=== PATIENT | female | born 1960 | race Caucasian/White ===

== ENCOUNTER 2018-05-22 00:09 | Outpatient (CLI) | payer BC, SELFPAY ==
[2018-05-22 10:55] LABS: ALT 45 U/L (12-78); AST 26 U/L (15-37); Albumin 3.5 g/dL (3.4-5.0); Alkaline Phosphatase 76 U/L (46-116); Anion Gap 10.1 mmol/L (3-11); BUN 12 mg/dL (7-18); Bilirubin, Total 0.6 mg/dL (0.2-1.0); CO2 27.9 mmol/L (21.0-32.0); CREATININE 0.64 mg/dL (0.55-1.02); Calcium 9.1 mg/dL (8.5-10.1); Chloride 105 mmol/L (98-107); Glucose 96 mg/dL (70-100); Potassium 4.1 mmol/L (3.5-5.1); Sodium 143 mmol/L (136-145); TSH (W/Ref FT4) 1.81 uIU/mL (0.358-3.74); Total Protein 6.9 g/dL (6.4-8.2)
== END 2018-05-22 00:29 ==
DX: R63.8 Other symptoms and signs concerning food and fluid intake (principal); F41.9 Anxiety disorder, unspecified; Z00.00 Encounter for general adult medical examination without abnormal findings
CPT/HCPCS: 36415; 80053; 84443

== ENCOUNTER 2018-07-22 01:06 | Outpatient (CLI) | payer BC, SELFPAY ==
--- NOTE | 2018-07-22 08:00 | DI.MAMMO_ITS ---
SYMPTOMS/DIAGNOSIS: SCREENING, Z12.31 MAMMOGRAM: Mammograms were interpreted according to the usual protocol including computer analysis with CAD system, tomosynthesis and C view imaging. The breast tissue is radiodense which lowers the sensitivity of the study. There is no dominant mass. There are no suspicious calcifications and there has been no significant interval change when compared with prior images. SUMMARY: No evidence of malignancy, Category I, yearly screening mammography is recommended. Breast density Category C. MQSA ASSESSMENT OF FINDINGS: Negative. Category 1. Patient will receive a letter notifying them of these results. Bi-RADS category C. The breasts are heterogeneously dense, which may obscure small masses.
== END 2018-07-22 01:26 ==
DX: Z12.31 Encounter for screening mammogram for malignant neoplasm of breast (principal)
CPT/HCPCS: 77063; 77067

== ENCOUNTER 2019-07-18 00:55 | Outpatient (CLI) | payer BC, SELFPAY ==
--- NOTE | 2019-07-18 16:39 | DI.DEXA_ITS ---
EXAM: XR DEXA BONE DENSITY W/WO JANE INDICATION: OTHER PRIMARY OVARIAN FAILURE E28.39. COMPARISON: No exams were available for comparison TECHNIQUE: 2D digital imaging was performed. FINDINGS: The lateral spine fill shows no compression fracture deformities. Evaluation of the left hip shows a total T-score of -0.8 and a Z-score of 0.1. This is within normal limits. There is no evidence of osteoporosis. Evaluation of the lumbar spine shows a total T-score of -0.7 and a Z-score of 0.6. This is within no rmal limits. There is no evidence of osteoporosis. IMPRESSION: No evidence of osteoporosis.
== END 2019-07-18 01:15 ==
PROVIDERS: PCP General Practice; Visit Provider General Practice
DX: E28.39 Other primary ovarian failure (principal); Z13.820 Encounter for screening for osteoporosis
CPT/HCPCS: 77080

== ENCOUNTER 2019-08-02 01:17 | Outpatient (CLI) | payer BC, SELFPAY ==
--- NOTE | 2019-08-02 16:24 | DI.MAMMO_ITS ---
EXAM: MAMMO SCREENING CLINICAL HISTORY: SCREENING Z12.31 TECHNIQUE: Mammograms were interpreted according to the usual protocol including computer analysis w [employer] CAD system, tomosynthesis and C-view imaging. COMPARISON: 2009 to 2017 FINDINGS: The breasts are composed of heterogeneously dense fibroglandular densities, Breast Density category C . No suspicious masses or suspicious microcalcifications are seen. No skin thickening or abnormal axillary lymph nodes are seen. There has been no significant change from prior exams. IMPRESSION: BIRADS Category 1, negative mammogram. Yearly screening mammography is recommended. BREAST DENSITY: The mammogram demonstrates the patient's breast tissue is dense. Dense breast tissue is very common and is not abnormal but dense breast tissue can make it harder to find cancer on a ma mmogram. Also, dense breast tissue may increase their breast cancer risk. This information about the result of the mammogram report was provided to the patient to raise their awareness. Use this report when you speak with the patient about their risks for breast cancer, which includes their family hist ory. At that time, you may recommend for more screening tests (Ultrasound or MRI) as they might be us eful based on their risk. A negative radiographic report should not delay biopsy if a dominant or clinically suspicious mass is present. Up to ten percent of cancers are not identified on mammography. A negative report may reinforce clinical impression. Adenosis and dense breasts may obscure an underlying neoplasm. False positive reports average 6 to 10%.
== END 2019-08-02 01:37 ==
PROVIDERS: PCP General Practice; Visit Provider General Practice
DX: Z12.31 Encounter for screening mammogram for malignant neoplasm of breast (principal)
CPT/HCPCS: 77063; 77067

== ENCOUNTER 2020-08-07 01:00 | Outpatient (CLI) | payer BC, SELFPAY ==
--- NOTE | 2020-08-07 | DI.MAMMO_ITS ---
EXAM: MAMMO SCREENING CLINICAL HISTORY: SCREENING, Z12.31. TECHNIQUE: Bilateral full field digital CC and MLO mammographic images were obtained with 3D tomosyn thesis and utilizing computer aided detection (CAD). COMPARISON: Prior mammograms dating back to 2013, the most recent being July 2019. FINDINGS: The fibroglandular tissue is again noted be moderately dense, this decreasing the sensitivity of the mammogram for finding in underlying lesions. There has been no significant change in the appearance of this portion of the fibroglandular tissue. Asymmetric tissue in the medial aspect of the left breast is unchanged as is an asymmetric density p osteriorly in the right breast. On 3D MLO imaging of the right breast the nodular density posteriorly in the right breast appears unc hanged from 2014 and therefore benign. There is no significant architectural distortion nor skin th ickening-retraction. IMPRESSION: Dense bilateral fibroglandular tissue. Stable benign-appearing bilateral findings. No obvious radio graphic evidence of malignancy. BI-RADS Category 2 - Benign Findings Breast Density - Category C - Heterogeneously dense Breast density Category C or D implies that the patient has dense breast tissue. Dense breast tissue can make it harder to find cancer on a mammogram. Dense breast tissue is also associated with an incr eased risk of breast cancer. This information about the result of the mammogram report was provided to the patient to raise their awareness. Use this report when you speak with the patient about their risks for breast cancer, which includes their family history. At that time, you may recommend additional screening tests (Ultrasoun d or MRI) as these tests may add significant information. A negative radiographic report should not delay biopsy if a dominant or clinically suspicious mass is present. Up to ten percent of cancers are not identified on mammography. A negative report may reinforce clinical impression. Adenosis and dense breasts may obscure an underlying neoplasm. False positive reports average 6 to 10%. Patient will receive a letter notifying them of these results.
== END 2020-08-07 01:20 ==
PROVIDERS: PCP General Practice; Visit Provider General Practice
DX: Z12.31 Encounter for screening mammogram for malignant neoplasm of breast (principal)
CPT/HCPCS: 77063; 77067

== ENCOUNTER 2021-08-14 01:12 | Outpatient (CLI) | payer BC, SELFPAY ==
--- NOTE | 2021-08-14 16:34 | DI.MAMMO_ITS ---
Exam(s) MAMMO SCREENING EXAM: MAMMO SCREENING CLINICAL HISTORY: SCREENING, Z12.31 TECHNIQUE: Mammograms were interpreted according to the usual protocol including computer analysis w [employer] CAD system, tomosynthesis and C-view imaging. COMPARISON: FINDINGS: The breasts are of heterogeneously increased radiodensity. No dominant mass or clumped microcalcific ation is identified in either breast. The current examination is compared with multiple previous exa minations including July 2020 and there is been no gross interval change in appearance in comparis on with the prior studies. IMPRESSION: No specific evidence of malignancy at this time. Routine screening examinations are suggested at ye leandro intervals due to the family history of breast carcinoma. BI-RADS Category 1 - Negative Breast Density - Category C - Heterogeneously dense
== END 2021-08-14 01:32 ==
PROVIDERS: PCP General Practice; Visit Provider General Practice
DX: Z12.31 Encounter for screening mammogram for malignant neoplasm of breast (principal); R92.8 Other abnormal and inconclusive findings on diagnostic imaging of breast
CPT/HCPCS: 77063; 77067

== ENCOUNTER 2022-08-18 01:28 | Outpatient (CLI) | payer BC, SELFPAY ==
--- NOTE | 2022-08-18 16:40 | DI.MAMMO_ITS ---
Exam(s) MAMMO SCREENING EXAM: MAMMO SCREENING CLINICAL HISTORY: SCREENING MAMMO FOR BREAST CANCER Z12.31. TECHNIQUE: Bilateral full field digital CC and MLO mammographic images were obtained with 3D tomosyn thesis and utilizing computer aided detection (CAD). COMPARISON: Prior mammograms dating back to 2016 were reviewed. FINDINGS: There has been no significant change in the appearance and distribution of the fibroglandular tissue. Asymmetric tissue medially in left breast is unchanged prior studies as is a nodular density posterio rly in right breast. There are no new spiculated masses nor malignant appearing microcalcification groups. There is no significant architectural distortion nor skin thickening-retraction. IMPRESSION: Stable benign findings. No radiographic evidence of malignancy. BI-RADS Category 2 - Benign Findings Breast Density - Category C - Heterogeneously dense Breast density Category C or D implies that the patient has dense breast tissue. Dense breast tissue can make it harder to find cancer on a mammogram. Dense breast tissue is also associated with an incr eased risk of breast cancer. This information about the result of the mammogram report was provided to the patient to raise their awareness. Use this report when you speak with the patient about their risks for breast cancer, which includes their family history. At that time, you may recommend additional screening tests (Ultrasoun d or MRI) as these tests may add significant information. A negative radiographic report should not delay biopsy if a dominant or clinically suspicious mass is present. Up to ten percent of cancers are not identified on mammography. A negative report may reinforce clinical impression. Adenosis and dense breasts may obscure an underlying neoplasm. False positive reports average 6 to 10%. Patient will receive a letter notifying them of these results.
== END 2022-08-18 01:48 ==
PROVIDERS: PCP General Practice; Visit Provider General Practice
DX: Z12.31 Encounter for screening mammogram for malignant neoplasm of breast (principal)
CPT/HCPCS: 77063; 77067

== ENCOUNTER 2023-04-05 10:19 | Emergency (ER) | payer BC, SELFPAY ==
[2023-04-05] VITALS (47 sets, daily range): BP systolic 82–208; BP diastolic 36–123; PULSE 56–122; RESP 18; TEMP 36.8; O2SAT 93–99
--- NOTE | 2023-04-05 10:15 | RT.EKG_ITS ---
APPROVED REPORT Exam: Resting ECG Reason for Exam: sob Patient Location: E HR:99 bpm ECG Measurements Heart Rate 99 AXIS OH 194 P 54 QRSd 108 QRS 76 QT 366 T 113 QTc 469 Conclusion Sinus rhythm...normal P axis, V-rate 60- 99 Probable left atrial enlargement...P >50mS, <-0.10mV V1 Inferoposterior infarct, acute...ST>.1 inf, <-.1 V1-3 or >.05 V7-9 STEMI
[2023-04-05] MEDS: Aspirin 325 MG TAB PO (10:35)
[2023-04-05] MEDS: nitroGLYcerin in D5W 50 MG/250 ML BTL IV (10:38)
--- NOTE | 2023-04-05 10:42 | ED.GENADUL_ITS ---
Discharge Plan Disposition Specific Acute Inpt Facility: [facility] Condition: Critical Discharge Details Chief Complaint: Chest Pain Clinical Impression: ST elevation (STEMI) myocardial infarction Primary Care Provider: Aleisha Boateng ED Provider: Ancelmo Diamond Home Meds and New Rx's Prescriptions: No Action omeprazole 20 mg capsule,delayed release(DR/EC) 20 mg PO DAILY Qty: 90 3RF meloxicam 15 mg tablet 15 mg PO DAILY PRN (Reason: arthralgia) Qty: 90 3RF multivitamin [Daily Multi-Vitamin] 1 EACH tablet 1 ea PO DAILY calcium carbonate-vitamin D3 1 EACH tablet 1 ea PO DAILY Qty: 30 loratadine 10 mg tablet 10 mg PO DAILY Qty: 90 3RF Medical Decision Making 62 yo female who denies prior cardiac history, remote smoker with no significant pmhx who comes in with chest pain start started around 5am and radiates to the jaw. Denies dyspnea, n/v, has had a cough since yesterday but no fevers or chills. She is in no distress on arrival, no jvd, caox4 speaking clearly, no leg swelling or calf tenderness, clear lungs. Her EKG shows clear inferior STEMI. Aspirin, plavix, heparin ordered, will start a nitro drip as well for her hypertension with systolic over 200. She has no absolute contraindications to lytics and consents to receiving lytics, 45mg TNK ordered. Pt was given SL while nitro drip was being started and BP decreased to 104 systolic so drip held, pt feels nausea which is likely from the drop in BP and nitro side effect Spoke with Dr. Schuster from cardiology at [facility] who agrees with treatment and accepts to their facility, accepting provider is Dr. Ivey, pt updated and agrees with plan, will be transported by [facility] pt given 500cc saline bolus and BP now 119/72, she feels improved, awaiting [facility] Differential Diagnosis Differential Diagnosis: stemi, acs Imaging Data Radiologic Study: Attestation: I personally reviewed and interpreted this imaging study as follows: Imaging: X-Ray Radiologist's impression: PROCEDURE INFORMATION: Exam: XR Chest Exam date and time: 04/05/2023 11:13 AM Age: 62 years old Clinical indication: Pain; Other: Chest TECHNIQUE: Imaging protocol: Radiologic exam of the chest. Views: 1 view. COMPARISON: CT Abdomen^UROGRAM (Adult) 02/02/2018 9:06 AM FINDINGS: Lungs: Unremarkable. No consolidation. Pleural spaces: Unremarkable. No pleural effusion. No pneumothorax. Heart/Mediastinum: Unremarkable. No cardiomegaly. Bones/joints: Unremarkable. IMPRESSION: No acute findings Lab Data Lab results reviewed: Yes I reviewed the patient's lab results. ECG Data Attestation: I personally reviewed and interpreted this ECG (s) as follows: Prior ECG tracings: not available for review Interpretation: sinus, rate of 99, pr 194, stemi inferior 2nd ekg shows sinus rate of 79, pr 184, continued inferior stemi, pvc's HPI General Mode of arrival: ambulatory . Date/Time Provider Initiated Documentation: 04/05/23 10:22 . Limitations to Documentation: no limitations . Information obtained by: patient . History of Present Illness 62 year old F presents to the emergency department with the chief complaint of chest pain, described as moderate, with intensity rated at 6. Quality is described as crushing, and is localized to the chest. Patient reports radiation to (jaw). Patient started experiencing this hour(s) (5) and it has been constant. No exacerbating factors reported . Patient notes denies fever/chills, shortness of breath and syncope. Patient did receive the following treatments prior to arrival, none Related Data Home Medications Medication Instructions Recorded Confirmed multivitamin (Daily Multi-Vitamin 1 ea PO DAILY 03/14/13 04/05/23 tablet) calcium carbonate 600 mg-vitamin 1 ea PO DAILY #30 tab-caps 11/07/16 04/05/23 D3 20 mcg (800 unit) tablet meloxicam 15 mg tablet 15 mg PO DAILY PRN arthralgia #90 06/02/18 04/05/23 tabs omeprazole 20 mg capsule,delayed 20 mg PO DAILY #90 tab-caps 06/02/18 04/05/23 release loratadine 10 mg tablet 10 mg PO DAILY #90 tab-caps 01/13/19 04/05/23 Previous Rx's Medication Instructions Recorded meloxicam 15 mg tablet 15 mg PO DAILY PRN arthralgia #90 06/02/18 tabs omeprazole 20 mg capsule,delayed 20 mg PO DAILY #90 tab-caps 06/02/18 release loratadine 10 mg tablet 10 mg PO DAILY #90 tab-caps 01/13/19 Allergies Allergy/AdvReac Type Severity Reaction Status Date / Time cephalexin Allergy Mild Nausea Unverified 04/05/23 10:38 hydrocodone AdvReac Intermediate Dizziness/Lightheade Verified 06/02/18 08:17 and nausea General Stated Complaint: Chest Pain LEAH: 2 Review of Systems All systems reviewed & are unremarkable except as noted in HPI and below Constitutional Constitutional: Denies chills, Denies fever(s) and Denies weakness Cardiovascular Cardiovascular: Denies dyspnea Respiratory Respiratory: Denies dyspnea Gastrointestinal Gastrointestinal: Denies abdominal pain, Denies nausea and Denies vomiting Musculoskeletal Musculoskeletal: Denies joint swelling Integumentary/Breasts Skin/Breast: Denies rash Neurologic Neurologic: Denies weakness Endocrine Endocrine: Denies heat intolerance PFSH All Active Problems ST elevation (STEMI) myocardial infarction (Acute) Plantar fascia syndrome (Chronic) Hematuria due to chronic interstitial cystitis (Chronic) Healthcare maintenance (Chronic) Smoking hx (Acute) quit 1995 Rotator cuff syndrome (Acute 06/25/06) right Increased BMI (Acute) Gastroesophageal reflux disease (Acute) Dermatitis (Acute) Skin BX-eczema Anxiety (Acute 05/27/17) Allergic rhinitis (Acute) Acute left ankle pain (Acute 05/22/16) Uterine prolapse (Acute 09/15/13) Status post vaginal hysterectomy (Acute 09/15/13) Medical History (Updated 04/05/23 @ 11:01 by Ancelmo Diamond MD) Allergic rhinitis Dermatitis GERD (gastroesophageal reflux disease) Obesity (BMI 30.0-34.9) Surgical History Arthroplasty of knee (~2005) LEFT Bilateral salpingectomy with oophorectomy Hysterectomy, Laproscopic (09/14/13) FIBROID Nasal septoplasty (~2000) SHOULDER SURGERY (06/08/07) RIGHT Family History Mother Essential hypertension Father , AGE 58 Heart disease Brother , AGE 57 Essential hypertension Diabetes Heart disease Stroke Brother Essential hypertension Hyperlipidemia Sister No problems noted. Daughter No problems noted. Daughter No problems noted. Social History (Updated 06/03/18 @ 09:52 by Honey Larson) Smoking/Tobacco Use Status: Former Tobacco Use Smoking risk assessment performed?: Yes Alcohol Intake: current Alcohol Intake frequency: holidays/special occasions only Drug use: Never Substance use type: does not use Duration: 15-30 minutes/day Frequency: 3-4 times per week Mirta/[employer]: [employer] Special mirta needs: No Exam Const General: no acute distress Orientation: alert HENMT Head: normal to inspection Ears: external ears normal General nose exam: external nose normal Mouth: moist mucous membranes Eyes General: appearance normal, both eyes and all related structures Neck Neck: normal visual inspection Resp Effort & Inspection: normal respiratory effort and able to speak in complete sentences Auscultation: clear to auscultation bilaterally Cardio Rate: regular rate Heart Sounds: no murmurs GI Palpation: nontender Skin General skin exam: no rashes or lesions noted Neuro General: patient alert and patient oriented x3 Extrem General: normal to inspection and capillary refill normal Psych Mental Status: mental status grossly normal Course Vital Signs Vital signs: Vital Signs Temperature 36.8 C 04/05/23 10:26 Pulse 113 H 04/05/23 10:26 Respiratory Rate 18 04/05/23 10:26 Blood Pressure 207/101 H 04/05/23 10:26 Pulse Oximetry 99 04/05/23 10:26 Temperature 36.8 C 04/05/23 10:26 Temperature Source Oral 04/05/23 10:26 Pulse 107 H 04/05/23 10:32 Pulse 111 H 04/05/23 10:32 Respiratory Rate 18 04/05/23 10:26 Respiratory Effort Normal 04/05/23 10:35 Blood Pressure 207/101 H 04/05/23 10:32 Blood Pressure Mean 141 04/05/23 10:32 Blood Pressure Position Sitting 04/05/23 10:26 Pulse Oximetry 97 04/05/23 10:32 Oxygen Delivery Method Room Air 04/05/23 10:26 Oxygen Flow Rate 0 04/05/23 10:26 Pain Level 5 04/05/23 10:26 Critical Care Time Critical Care Time Critical Care Time: Yes Total Critical Care Time: 60 Attestation: time spent reviewing labs, administering lytics and frequent reassessments and hemoydynamic monitoring in a patient with ST elevation MD and potential to deteriorate at any time
[2023-04-05 10:44] LABS: Abs Immature Grans 0.05 10^3/uL (0.0-0.06); Absolute Lymphocyte Count 1.33 10^3/uL (1.2-3.4); Absolute Monocyte Count 0.46 10^3/uL (0.1-0.8); Basophils % 0.5; Eosinophils % 0.5; HGB 15.3 g/dL (11.2-15.7); Immature Grans % 0.5; Lymphocytes % 12.1; MCH 29.8 pg (27.0-33.0); MCV 88 fL (80-95); MPV 9.6 fL (8.0-11.0); Monocytes % 4.2; Neutrophils % 82.2; Platelet Count 398 10^3/uL (130-400); RBC 5.13 10^6/uL (3.93-5.22); RDW 12.7 % (11.7-14.6); RDW-SD 41.2 fL; WBC 11.03 10^3/uL (4.4-10.8)
[2023-04-05] MEDS: Clopidogrel 300 MG TAB 600 MG PO (10:45)
[2023-04-05 10:49] LABS: Absolute Basophil Count 0.06 10^3/uL (0.0-0.2); Absolute Eosinophil Count 0.06 10^3/uL (0.0-0.7); Absolute Neutrophil Count 9.07 10^3/uL (1.2-6.7)
[2023-04-05] MEDS: Tenecteplase 50 MG KIT 45 MG IVP (10:51)
[2023-04-05] MEDS: nitroGLYcerin 0.4 MG TAB SL (10:55)
[2023-04-05 10:58] LABS: PTT Activated 29.6 sec (21.5-31.9); Prothrombin Time 9.8 sec (9.3-11.0)
[2023-04-05] MEDS: Heparin in 0.45% NaCl 25,000 UNIT/250 ML BAG 10 UNIT IV (10:58)
--- NOTE | 2023-04-05 11:00 | RT.EKG_ITS ---
APPROVED REPORT Exam: Resting ECG Reason for Exam: chest pain Patient Location: E HR:79 bpm ECG Measurements Heart Rate 79 AXIS MS 184 P 44 QRSd 110 QRS 84 QT 495 T 91 QTc 568 Conclusion Sinus rhythm...normal P axis, V-rate 60- 99 Paired ventricular premature complexes...sequence of 2 V complexes Probable left atrial enlargement...P >50mS, <-0.10mV V1 Inferior infarct, acute...ST>0.10mV, T upright, II III aVF Prolonged QT interval...QTc >500mS
[2023-04-05 11:02] LABS: ALT 24 U/L (14-59); AST 26 U/L (15-37); Albumin 3.9 g/dL (3.4-5.0); Alkaline Phosphatase 99 U/L (46-116); Anion Gap 8.9 mmol/L (3-11); BUN 13 mg/dL (7-18); Bilirubin, Total 0.8 mg/dL (0.2-1.0); CO2 27.1 mmol/L (21.0-32.0); CREATININE 0.8 mg/dL (0.55-1.02); Chloride 101 mmol/L (98-107); Estimated GFR 83.26 (mL/min/1.73m2); Glucose 144 mg/dL (74-106); Magnesium 1.8 mg/dL (1.8-2.4); Potassium 3.3 mmol/L (3.5-5.1); Sodium 137 mmol/L (136-145); Total Protein 8.3 g/dL (6.4-8.2)
[2023-04-05 11:04] LABS: Troponin I 829 ng/L (<or=60)
[2023-04-05] MEDS: Ondansetron 4 MG/2 ML VIAL (11:06)
--- NOTE | 2023-04-05 11:19 | DI.RAD_ITS ---
Exam(s) XR PORTABLE CHEST AP EXAM: XR PORTABLE CHEST AP CLINICAL HISTORY: chest pain. TECHNIQUE: 2D digital imaging was performed. COMPARISON: No exams were available for comparison FINDINGS: Single AP portable view. Heart size is upper normal. The mediastinum is not widened. Lungs are clear. No infiltrates nor obvious pleural effusions. IMPRESSION: No acute pulmonary findings on this single AP portable view of the chest. DATA REPOSITORY: RADIATION DOSE DELIVERED:
--- NOTE | 2023-04-05 11:27 | DI.VRAD_ITS ---
PROCEDURE INFORMATION: Exam: XR Chest Exam date and time: 04/05/2023 11:13 AM Age: 62 years old Clinical indication: Pain; Other: Chest TECHNIQUE: Imaging protocol: Radiologic exam of the chest. Views: 1 view. COMPARISON: CT Abdomen^UROGRAM (Adult) 02/02/2018 9:06 AM FINDINGS: Lungs: Unremarkable. No consolidation. Pleural spaces: Unremarkable. No pleural effusion. No pneumothorax. Heart/Mediastinum: Unremarkable. No cardiomegaly. Bones/joints: Unremarkable. IMPRESSION: No acute findings. Dictated and Authenticated by: Yanira Donahue MD. Ordering:GIOVANY Ag MD
--- NOTE | 2023-04-05 11:53 | NUR.NOTE ---
Nursing Note: report given to Karon MARTINI at [facility] cardiovascular critical care unit.
== END 2023-04-05 12:12 | disposition short-term general hospital (02) ==
PROVIDERS: Emergency Provider Emergency Medicine; PCP General Practice
DX: I21.3 ST elevation (STEMI) myocardial infarction of unspecified site (principal)
CPT/HCPCS: 80053; 93005; 96365; 96368; 96375; 99291; 71045; 83735; 84484; 85025; 85610; 85730; 93010; J2405; J3101

== ENCOUNTER 2023-04-24 13:00 | Outpatient (RCR) | payer BC, SELFPAY ==
--- NOTE | 2023-04-22 14:00 | RT.EKG_ITS ---
APPROVED REPORT Exam: Resting ECG Reason for Exam: CR Baseline Patient Location: O HR:75 bpm ECG Measurements Heart Rate 75 AXIS VT 175 P 48 QRSd 156 QRS -14 QT 448 T 195 QTc 501 Conclusion Sinus rhythm...normal P axis, V-rate 50- 99 Left bundle branch block...QRSd>120, broad/notched R
== END 2023-04-25 23:59 | disposition home or self-care (01) ==
LOC: CR 13:00
PROVIDERS: PCP General Practice; Visit Provider Internal Medicine Cardiovascular Disease
DX: I25.2 Old myocardial infarction (principal); Z51.89 Encounter for other specified aftercare
CPT/HCPCS: S9472

== ENCOUNTER 2023-05-25 13:03 | Outpatient (RCR) | payer BC, SELFPAY | END 2023-05-26 23:59 | disposition home or self-care (01) | LOC: CR 13:03 | PROVIDERS: PCP General Practice; Visit Provider Internal Medicine Cardiovascular Disease | DX: I25.2 Old myocardial infarction (principal); Z51.89 Encounter for other specified aftercare | CPT/HCPCS: S9472 ==

== ENCOUNTER 2023-06-24 13:26 | Outpatient (RCR) | payer BC, SELFPAY | END 2023-06-25 23:59 | disposition home or self-care (01) | LOC: CR 13:26 | PROVIDERS: PCP General Practice; Visit Provider Internal Medicine Cardiovascular Disease | DX: I25.2 Old myocardial infarction (principal); Z51.89 Encounter for other specified aftercare | CPT/HCPCS: S9472 ==

== ENCOUNTER 2023-07-13 14:10 | Outpatient (RCR) | payer BC, SELFPAY ==
--- OUTSIDE RECORDS SUMMARY | 2023-07-01 15:16 | XMS_ITS | Continuity of Care Document ---
Author Name Unknown Address [address] [place] [address] Phone [facility] Practices Address [address] [place] [address] Phone Care Team Providers Care Dye Can Operator Name Role Phone ANDREAS Boateng Primary Care Provider YENNY Schaffer Attending Provider [phone] Care Teams Patient Care Team Team Status: Active Member Role Status ANDREAS Boyd Primary Care Provider Active Visit Care Team Team Status: Inactive Member Role Status ANDREAS Boyd Primary Care Prov ider, Referring Provider Active Start: July 01, 2023 End: July 01, 2023 Saskia Schaffer DPM Attending Provider Active St art: July 01, 2023 End: July 01, 2023 Chief Complaint and Reason for Visit Chief Complaint F/U Reason for Visit Plantar fasciitis of left foot Posterior tibial tendon dysfunction (PTTD) of left lower extremity Allergies, Adverse Reactions, Alerts Allergen Type Severity Reaction Last Updated Verified Status cephalexin Allergy Unknown Unknown July 01, 2023 10:00am Yes Active hydrocodone Allergy Unknown Dizziness July 01, 2023 10:00am Yes Active latex Allergy Unknown Rash Generalized July 01, 2023 10:00am Yes Active Social History Smoking Status Status Start Date End Date Date of Observa tion Unknown if ever smoked Decem 2022 10:04am Additional Data Assigned Sex Female Family History Relationship Condition Age at Onset Recorded Date/T saida father Hypertension Unknown Heart disease Unknown Myocardial infarction Unknown mother Hypertension Unknown Diabetes mellitus Unknown Other or Unknown Cerebrovascular accident (CVA) Unknow n Diabetes mellitus Unknown Hypertension Unknown Heart disease Unknown Hyperlipidemia Unknown Disorder of thyroid Unknown Myocardial infarction Unknown Problems Active Problems Medical Problem Onset Date Status Plantar fascial fibromatosis Act nat Plantar fasciitis of left foot A ctive Heart attack Active Posterior tibial tendon dysfunction (PTTD) of le ft lower extremity Active Inactive/Resolved Problems Medical Problem Onset Date Status History of mammogram Resolved History of bone density study Re solved History of shoulder surgery Reso lved Anxiety Resolved Dermatitis Resolved History of Papanicolaou smear of cervix Resolved History of nasal septoplasty Res olved History of esophagogastroduodenoscopy (EGD) Resolved History of colonoscopy Resolved S/P laparoscopic hysterectomy Re solved History of cystoscopy Resolved S/P left knee arthroscopy Resolv ed GERD (gastroesophageal reflux disease) Resolved Castillo esophagus Resolved Hiatal hernia Resolved Obesity Resolved Medications Medication Status Dose Units Route Directions Qty Days St art Date End Date Instructions Metoprolol Succinate Active 25 MG PO daily April 26, 2023 11:00pm Aspirin Active 1 TAB PO daily April 26, 2023 11:00pm Losartan Active 25 MG PO daily April 26, 2023 11:00pm Clopidogrel Active 75 MG PO daily Octob er 2022 11:00pm Atorvastatin Active 80 MG PO daily Octo 2022 11:00pm Triamcinolone Acetonide Active 1 APPLIC TOPICALL Y 2 times per day March 24, 2023 11:00pm Omeprazole Active 20 MG PO daily March 24, 2023 11:00pm Meloxicam Active 15 MG PO daily March 24, 2023 11:00pm Loratadine (Allergy Relief (Loratadine)) 10 mg tablet Active 10 MG PO daily March 24, 2023 11:00pm Multivitamin Active 1 TAB PO daily 2022 11:00pm Calcium Carbonate-Vit lee D3 Active 1 TAB PO daily March 24, 2023 11:00pm Calcium Polycarbophil (Fibercon) 625 mg tablet Active 1250 MG PO 3 times per day March 24, 2023 11:00pm Immunizations Immunization Event Date Not Given Reason Dose Number Scrap Sorter Lot Number Vaccine Information Statement (VIS) Detail Tdap (Boostrix, Adacel) June 02, 2019 Tdap (Boostrix, Adacel) October 23, 2008 *COVID-19 Pfizer mRNA (12Y Up)(Comirnaty) July 12, 2021 *COVID-19 Pfizer mRNA (12Y Up)(Comirnaty) October 31, 2020 *COVID-19 Pfizer mRNA (12Y Up)(Comirnaty) October 03, 2020 *Influenza, unspecified formulation June 02, 2018 *Influenza, unspecified formulation May 11, 2014 *Influenza, unspecified formulation May 27, 2013 *Influenza, unspecified formulation June 06, 2020 *Influenza, unspecified formulation June 02, 2019 *Influenza, unspecified formulation June 12, 2022 *Influenza, unspecified formulation June 06, 2021 Relevant Diagnostic Tests and/or Laboratory Data Diagnostic Imaging Reports Author Saskia Schaffer [facility] Practices July 01, 2023 10:22am Report Date/Time July 01, 2023 1 0:04am [place] [address] Podiatry Clinic Note 07/01/23 Patient Name: VICENTE KIRBY Date of : 1960 Age: 63 F Record #: [id number] Acct: [id number] Loc: W.POD.WPO Visit Provider: Saskia Schaffer DPM Assessment and Plan- (1) Plantar fasciitis of left foot: M72.2 - Plantar fascial fibromatosis (2) Posterior tibial tendon dysfunction (PTTD) of left lower extremity: M76.822 - Posterior tibial tendinitis, left leg Plan The patient was unable to get custom orthotics due to cost and no coverage by her insurance. She began wearing a Mensah Shoe that is very supportive. She stopped wearing her very well formed OTC inserts as she did not know she should wear them. She has pain still with physical activity so I have asked her to return to those inserts. I have offered to have her orthotics scanned here in 3months if not fully resolved or if she has recurrent bouts of pain. She is in agreement with that plan. Follow Up: 3 Months Patient Details 2 Height 5 ft 1 in 07/01/23 Weight 180 lb 07/01/23 Body Mass Index (BMI) 34.0 07/01/23 HPI This 63 year old female, patient and referral of Aleisha Boateng PA-C, is seen again for left heel pain. She relates that she replaced her shoes with a very supportive Mensah shoe. She did not add the inserts as she thought they are supportive enough. She also could not afford the custom orthotics offered through [facility] for $375. She has been going to cardiac rehab and is due for release from that program on 07/15/2023. She relates that when she is on the treadmill, she has pain along the left posterior tibial tendon and she points tothe tendon course with most of the pain being close to the insertion. She relates no other acute health issues. Intake Visit reasons: F/U Patient type: Established 2 No Data to Display Nurse/MA Note: pt states that she is here for left foot f/u pt states that things are slowly getting better, she states that she has been wearing new shoes for about 2 weeks now, and that those have helped. pt states that she did speak with [facility] and was told that her insurance will not cover the orthotics, and she can not afford the 375 they charge. pt states that the feet hurt the most when she is doing her cardiac rehab therapy. Tobacco Use: former Allergies/Adverse Reactions cephalexin [From Keflex] Allergy (Verified 07/01/23 10:00) Unknown hydrocodone Allergy (Verified 07/01/23 10:00) Dizziness latex Allergy (Verified 07/01/23 10:00) Rash Generalized Home Medications calcium carbonate 600 mg-vitamin D3 10 mcg (400 unit) tablet 1 tab PO DAILY 03/25/23 [History Confirmed 07/01/23] calcium polycarbophil 625 mg tablet (FiberCon) 1,250 mg PO TID 03/25/23 [History Confirmed 07/01/23] loratadine 10 mg tablet (Allergy Relief (loratadine)) 10 mg PO DAILY 03/25/23 [History Confirmed 07/01/23] meloxicam 15 mg tablet 15 mg PO DAILY 03/25/23 [History Confirmed 07/01/23] multivitamin 1 tab PO DAILY 03/25/23 [History Confirmed 07/01/23] omeprazole 20 mg capsule,delayed release 20 mg PO DAILY 03/25/23 [History Confirmed 07/01/23] triamcinolone acetonide 0.1 % topical cream 1 application topical BID 03/25/23 [History Confirmed 07/01/23] aspirin 81 mg chewable tablet 1 tab PO DAILY 04/27/23 [History Confirmed 07/01/23] atorvastatin 80 mg tablet 80 mg PO DAILY 04/27/23 [History Confirmed 07/01/23] clopidogrel 75 mg tablet 75 mg PO DAILY 04/27/23 [History Confirmed 07/01/23] losartan 25 mg tablet 25 mg PO DAILY 04/27/23 [History Confirmed 07/01/23] metoprolol succinate 25 mg tablet,extended release 24 hr 25 mg PO DAILY 04/27/23[History Confirmed 07/01/23] Vital Signs 3 07/01/23 10:01 Height 5 ft 1 in Weight 180 lb Body Mass Index (BMI) 34.0 Temperature 98.2 F Pulse 64 Respiratory Rate 16 Blood Pressure 128/76 Pulse Oximetry (%) 98 Provider Reviewed Vital Signs? Yes BMI Screening overweight, high plan-ref Past Patient History Active Problems Posterior tibial tendon dysfunction (PTTD) of left lower extremity Plantar fasciitis of left foot Heart attack (Acute) On 04/05/2023 Plantar fascial fibromatosis Medical History Hiatal hernia Castillo esophagus Anxiety Obesity GERD (gastroesophageal reflux disease) Dermatitis History of Papanicolaou smear of cervix 2012 History of bone density study 07/18/19 Dexa History of mammogram 08/14/21: [place], negative Surgical History History of nasal septoplasty 2000 S/P left knee arthroscopy 02/11/222005 History of shoulder surgery 06/08/07: (right) S/P laparoscopic hysterectomy 09/14/13 History of cystoscopy 03/09/18 History of esophagogastroduodenoscopy (EGD) 01/09/22: repeat 3 years History of colonoscopy 01/09/22: repeat 7 years 07/30/15: CONNIE, Dr. Alexandra Family History Father , age: 58 Hypertension Heart disease Myocardial infarction Mother Hypertension Diabetes Sibling Cerebrovascular accident (CVA) Diabetes Hypertension Heart disease Hyperlipemia Thyroid disease Myocardial infarction Social History Tobacco Use: former >10 years Review of Systems per history of present illness Physical Examination Constitutional: Patient is alert and oriented x3, and is in no apparent distress. Cardiovascular:DP/PT pulses are palpable both feet. Capillary fill is immediate all toes both feet. No swelling of either foot or leg. Skin: The skin of both feet is with normal temperature, texture, and turgor. There are no rashes, fissures, or open skin lesions. Nails within normal limits. Musculoskeletal: There is loss of arch height with standing both feet, left morethan right. There is weakness with single toe rise, left more than right. There is pain on palpation of the left medial foot along the course of the tendon, but no pain to the left heel and no pain with side to side squeeze of the heel or with percussion. Neurological: Epicritic sensation is grossly intact bilateral feet. No neuritic pain with deep palpation over the plantar heel or over the posterior tibial nerves bilateral feet. Data Reviewed Laboratory 2 No Data to Display Coding Level of Care Code OV, EST. LOW MDM Coding Based on MDM Total minutes spent (including non [id number] time) on DOS: 25 Diagnoses Plantar fasciitis of left foot M72.2 Posterior tibial tendon dysfunction (PTTD) of left lower extremity M76.822 Recorded by: Saksia Schaffer DPM <Electronically signed by Saskia Schaffer DPM> 07/01/23 1022 CC: ANDREAS Smith Vital Signs Vital Reading Result Reference Range Collection Date/Time Height 61 [in_i] July 01 023 10:01am Weight 180.00 [lb_av] July 01, 2023 10:01am Body Temperature 98.2 [degF] 97.6-99.6 June 10:01am Heart Rate 64 /min 60-100 July 01 023 10:01am Respiratory rate 16 /min 12-18 June 10:01am Oxygen saturation by Pulse oximetry 98 % 92-100 July 01, 2023 1 0:01am BP Systolic 128 mm[Hg] 90-130 July 01, 023 10:01am BP Diastolic 76 mm[Hg] 70-80 July 01 023 10:01am BMI (Body Mass Index) 34.0 kg/m2 [facility] 2022 10:01am Insurance Providers Guarantor VICENTE KIRBY Address [address] [place] [id number] Contact Info. Home Phone: Payer Policy Id Coverage Id Subscriber's Name Subscriber Id Effective Date Expiration Date [place] [employer] [employer] [id number] VICENTE Griselda KIRBY [id number] 000 Encounters Encounter Location(s) Arrival/Admit Date Discharge/Depart Date Provider(s) Departed Physician/Prov ider Office Visit [facility] Podiatry [place] July 01, 2023 9:44am July 01, 2023 10:20am Saskia Schaffer DPM Recent Diagnosis Onset Date Plantar fasciitis of left foot Posterior tibial tendon dysfunction (PTT D) of left lower extremity Assessments Diagnosis Onset Date Resolution Status Plantar fasciitis of left foot noneactive Posterior tibial tendon dysf unction (PTTD) of left lower extremity noneactive Plan of Treatment [facility] July 01, 2023 1 0:22am The patient was unable to ge t custom orthotics due to cost and no coverage by her insurance. She began wearing a Mensah Shoe that is very supportive. She stopped wearing her very well formed OTC inserts as she did not know she should wear them. She has pain still with physical activity so I have asked her to return to those inserts. I have offered to have her orthotics scanned here in 3 months if not fully resolved or if she has recurrent bouts of pain. She is in agreement with that plan. Future Tests Future scheduled test information is unavailable Pending Tests Pending diagnostic test information is unavailable Future Visits Future appointment information is unavailable Referrals to Other Providers Referral information is unavailable Future Procedures Future procedure information is unavailable Future Medications Future medication information is unavailable Patient Instructions Patient instructions are unavailable
--- OUTSIDE RECORDS SUMMARY | 2023-07-01 15:16 | XMS_ITS | Continuity of Care Document ---
Author Name Unknown Address [address] [place] [address] Phone [facility] Practices Address [address] [place] [address] Phone Care Team Providers Care Chemical Plant Worker Name Role Phone ANDREAS Boateng Primary Care Provider UNKNOWN Attending Provider Unavailable Lisa Leong Attending Provider Unavailable YENNY Schaffer Attending Provider Care Teams Patient Care Team Team Status: Active Member Role Status ANDREAS Boyd Primary Care Provider Active Visit Care Team Team Status: Active Member Role Status ANDREAS Boyd Primary Care Provider Active UNKNOWN Attending Provider Active Visit Care Team Team Status: Inactive Member Role Status ANDREAS Boyd Primary Care Provider, Referrin g Provider Active Saskia Schaffer DPM Attending Provider Active Visit Care Team Team Status: Active Member Role Status ANDREAS Boyd Primary Care Provider Active Lisa Leong Attending Provider Active Chief Complaint and Reason for Visit Chief Complaint Amb Documentation plantar fascial fibromatosis Allergies, Adverse Reactions, Alerts Allergen Type Severity Reaction Last Updated Verified Status cephalexin Allergy Unknown April 27 10:04am Yes Active hydrocodone Allergy Dizziness April 27, 2023 10:04am Yes Active latex Allergy Rash Generalized April 27, 2023 10:04am Yes Active Social History Smoking Status Status Start Date End Date Date of Observa tion Unknown if ever smoked Octob 2022 10:15am Additional Data Assigned Sex Female Family History [...] Date Status Plantar fascial fibromatosis Act nat Heart attack Active Inactive/Resolved Problems Medical Problem Onset Date [...] Succinate Active 25 MG PO daily April 27, 2023 12:00am Aspirin Active 1 TAB PO daily April 27, 2023 12:00am Losartan Active 25 MG PO daily April 27, 2023 12:00am Clopidogrel Active 75 MG PO daily Octob er 2022 12:00am Atorvastatin Active 80 MG PO daily Apro 2022 12:00am Triamcinolone Acetonide Active 1 APPLIC TOPICALL Y 2 times per day March 25, 2023 12:00am Omeprazole Active 20 MG PO daily March 25, 2023 12:00am Meloxicam Active 15 MG PO daily March 25, 2023 12:00am Loratadine (Allergy Relief (Loratadine)) 10 mg tablet Active 10 MG PO daily March 25, 2023 12:00am Multivitamin Active 1 TAB PO daily 2022 12:00am Calcium Carbonate-Vit lee D3 Active 1 TAB PO daily March 25, 2023 12:00am Calcium Polycarbophil (Fibercon) 625 mg tablet Active 1250 MG PO 3 times per day March 25, 2023 12:00am Immunizations Immunization Event Date Not Given Reason Dose Number Map Plotter Lot Number Vaccine Information Statement (VIS) Detail [...] 2022 *Influenza, unspecified formulation June 06, 2021 Vital Signs Vital Reading Result Reference Range Collection Date/Time Height 61 [in_i] April 27 10:07am Weight 185.00 [lb_av] April 27, 2023 10:07am Body Temperature 97.1 [degF] 97.6-99.6 April 10:07am Heart Rate 85 /min 60-100 April 27 10:07am Respiratory rate 18 /min 12-18 April 10:07am Oxygen saturation by Pulse oximetry 98 % 92-100 April 27, 2023 10 :07am BP Systolic 112 mm[Hg] 90-130 April 27 10:07am BP Diastolic 75 mm[Hg] 70-80 April 27 10:07am BMI (Body Mass Index) 34.9 kg/m2 [facility] 2022 10:07am Insurance Providers Guarantor VICENTE KIRBY Address [address] [place] [address] Contact Info. Home Phone: Payer Policy Id Coverage Id Subscriber's Name Subscriber Id Effective Date Expiration Date [place] [id number] VICENTE KIRBY [id number] 000 Encounters Encounter Location(s) Arrival/Admit Date Discharge/Depart Date Provider(s) Non-patient / Non-visit [facility] Podiat[facility] [place] March 11, 2023 11:59pm Unknown Non-patient / Non-visit [facility] Nonvisit March 25, 2023 9:21am Lisa Leong Departed Physician/Prov ider [facility] April 27, 2023 9:34am April 27, 2023 10:50am Saskia Schaffer DPM Plan of Treatment Future Tests Future scheduled test information is unavailable Pending Tests Pending diagnostic test information is unavailable Future Visits Future appointment information is unavailable Referrals to Other Providers Reason for Referral Referral Start Date Provider Provider Contact Information Provider Address M72.2 - Plantar fascial fibromatosis April 27, 2023 Saskia Schaffer DPM Work Phone: [address] [place] [id number] Future Procedures Future procedure information is unavailable Future Medications Future medication information is unavailable Patient Instructions Patient instructions are unavailable Hospital Discharge Instructions Ambulatory Orders* Podiatry Referral Time Frame: 1 Week, Location: None Selected
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
== END 2023-07-26 23:59 | disposition home or self-care (01) ==
LOC: CR 14:10
PROVIDERS: PCP General Practice; Visit Provider Internal Medicine Cardiovascular Disease
DX: I25.2 Old myocardial infarction (principal); Z51.89 Encounter for other specified aftercare
CPT/HCPCS: S9472

== ENCOUNTER 2023-09-11 16:20 | Emergency (ER) | payer OTHER, SELFPAY ==
[2023-09-11 16:26] VITALS: BP 147/70; PULSE 69; RESP 16; TEMP 36.5; O2SAT 95
--- NOTE | 2023-09-11 16:30 | DI.RAD_ITS ---
Exam(s) XR RIBS LT W PA LAT CHEST CLINICAL HISTORY Fall. COMPARISON: CR,XR XR PORTABLE CHEST AP from 04/05/2023 TECHNIQUE:: PA and lateral views of the chest and four views of the left ribs were performed. FINDINGS: the lower ribs are not optimally penetrated. LUNGS: Clear. No pleural abnormality seen. HEART: Normal. MEDIASTINUM: Normal. BONES: No displaced rib fracture is seen. No compression fractures are seen in the thoracic spine. No bony destructive lesion is seen. OTHER FINDINGS: None. IMPRESSION: 1. Unremarkable radiographic appearance of the left ribs. 2. No acute pulmonary findings.
--- NOTE | 2023-09-11 18:00 | DI.CT_ITS ---
Exam(s) CT CHEST/ABD/PEL WO EXAM: CT CHEST/ABD/PEL WO CLINICAL HISTORY: Left sided rib pain, Flank pain s/p Fall. TECHNIQUE: Imaging Protocol: Axial computed tomography images with coronal and sagittal reformatted images were created and reviewed CONTRAST MATERIAL: Intravenous: Omnipaque 350 Contrast volume:100 ml Oral: / no CR XR RIBS LT W PA LAT CHEST from 09/11/2023 FINDINGS: CHEST: Small hiatal hernia. Tracheobronchial tree: Patent where visualized. Pulmonary parenchyma: No consolidation or dominant measurable mass. Pleura: No effusion or pneumothorax. Lymph nodes: Within normal limits. Aorta: Thoracic portion non-dilated. Heart: No pericardial effusion. Coronary artery stent. Bones: Unremarkable for age. No lytic or blastic lesions.No compression fractures. No rib fracture identified. Soft tissues: Unremarkable. ABDOMEN and PELVIS: Liver: Normal density. No measurable mass. Gallbladder and biliary tract: Gallstones. No wall thickening. No biliary dilatation. Pancreas: Normal density, no abnormal calcifications or inflammatory process. Spleen: Normal. Kidneys: Normal size, contour and axis. No radiodense stones. No obstructive uropathy. No suspicious masses seen. Adrenal glands: No masses seen. Aorta: Abdominal portion non-dilated. Lymph nodes: Within normal limits. Soft tissues: Unremarkable. Bladder: Unremarkable. Bowel: No obstruction or bowel wall thickening. Appendix normal. Peritoneal cavity: No ascites. No focal collection. No mesenteric inflammatory response. Bones: Unremarkable for age. No spine or pelvic fracture. Reproductive organs: Within normal limits. IMPRESSION: No acute abnormality in the chest, abdomen or pelvis.. RADIATION DOSE DELIVERED: 1,287.18mGy.cm Total DLP DATA REPOSITORY: All CT scans at this facility are submitted to the National Radiology Data Registry (NRDR) Dose Index Registry (DIR) with the [employer] (A[employer]). RADIATION OPTIMIZATION: All CT scans at this facility use at least one of these dose optimization te chniques: automated exposure control; mA and/or kV adjustment per patient size (includes targeted exa ms where dose is matched to clinical indication); or iterative reconstruction.
--- NOTE | 2023-09-11 18:01 | W.ED.GENAD ---
HPI General Mode of arrival: ambulatory. Date/Time Provider Initiated Documentation: 09/11/23 16:33. Limitations to Documentation: no limitations. Information obtained by: patient, RN notes reviewed and old records reviewed. HPI Narrative: 63-year-old female presents to the ER with a chief complaint of left-sided rib pain and flank pain status post a mechanical fall prior to arrival. Patient reports that she slipped on the ice landing on her book bag which held her computer. She is complaining of left posterior rib and flank pain. She is on aspirin and clopidogrel. Related Data Home Medications Medication Instructions Recorded Confirmed multivitamin (Daily Multi-Vitamin 1 ea PO DAILY 03/14/13 09/11/23 tablet) calcium carbonate 600 mg-vitamin 1 ea PO DAILY #30 tab-caps 11/07/16 09/11/23 D3 20 mcg (800 unit) tablet meloxicam 15 mg tablet 15 mg PO DAILY PRN arthralgia #90 06/02/18 09/11/23 tabs omeprazole 20 mg capsule,delayed 20 mg PO DAILY #90 tab-caps 06/02/18 09/11/23 release loratadine 10 mg tablet 10 mg PO DAILY #90 tab-caps 01/13/19 09/11/23 Previous Rx's Medication Instructions Recorded meloxicam 15 mg tablet 15 mg PO DAILY PRN arthralgia #90 06/02/18 tabs omeprazole 20 mg capsule,delayed 20 mg PO DAILY #90 tab-caps 06/02/18 release loratadine 10 mg tablet 10 mg PO DAILY #90 tab-caps 01/13/19 Allergies Allergy/AdvReac Type Severity Reaction Status Date / Time cephalexin Allergy Mild Nausea Verified 09/11/23 16:29 hydrocodone AdvReac Intermediate Dizziness/Lightheade Verified 09/11/23 16:29 and nausea General Stated Complaint: Chest/Rib LEAH: 3 Review of Systems All systems reviewed & are unremarkable except as noted in HPI and below Constitutional Constitutional: Reports as per HPI and Denies headache(s) ENT Ears, Nose, Mouth, and Throat: Denies headache(s) Respiratory Respiratory: Denies change in phlegm color, Denies chest congestion, Denies cough and Denies hemoptysis Musculoskeletal Musculoskeletal: Reports as per HPI and Reports back pain Neurologic Neurologic: Denies headache(s) Exam Narrative Exam Narrative: General: Well Developed, Awake and Alert, conversant. Skin: Warm and Dry HEENT: Head: No palpable deformities, Normocephalic Eyes: Pupils PERRLA, EOM's intact. No periorbital eccymosis or step off Ears: Canal patent. Tympanic membranes are clear . No gutiérrez's sign, no hemptympanum. Nose/Face: Atraumatic. Facial bones nontender to palpation and stable with manipulation. Mouth/Throat: No intraoral trauma. Teeth and mandible are intact. Neck: No midline tenderness, no step off, no deformity to palpation of C-spine. Trachea midline. Chest: No surface trauma. Nontender without crepitus or deformity. Lungs clear to ausculatation bilaterally. Heart: RRR, no rubs, murmurs or gallop. Abdomen: No abrasions, ecchymosis, or surface trauma. Nondistended. Nontender to palpation no guarding, rebound, or rigidity. Pelvis: Nontender to palpation and stable to compression. Femoral pulses strong and equal Extremities: no surface trauma. Sensation intact. Peripheral pulses intact and equal. Neuro: ANO x4, GCS 15, cranial nerves II through XII intact. Motor and sensory exam nonfocal. Reflexes are symmetric. Course Vital Signs Vital signs: Vital Signs Temperature 36.5 C 09/11/23 16:26 Pulse 69 09/11/23 16:26 Respiratory Rate 16 09/11/23 16:26 Blood Pressure 147/70 H 09/11/23 16:26 Pulse Oximetry 95 09/11/23 16:26 Temperature 36.5 C 09/11/23 16:26 Temperature Source Tympanic 09/11/23 16:26 Pulse 69 09/11/23 16:26 Respiratory Rate 16 09/11/23 16:26 Respiratory Effort Normal 09/11/23 17:35 Respiratory Depth Normal 09/11/23 17:35 Respiratory Pattern Normal 09/11/23 17:35 Blood Pressure 147/70 H 09/11/23 16:26 Blood Pressure Position Sitting 09/11/23 16:26 Pulse Oximetry 95 09/11/23 16:26 Oxygen Delivery Method Room Air 09/11/23 16:26 Oxygen Flow Rate 0 09/11/23 16:26 Pain Level 4 09/11/23 17:35 Medical Decision Making 63-year-old female presents to the ER with a chief complaint of left-sided rib pain and flank pain status post a mechanical fall prior to arrival. Patient reports that she slipped on the ice landing on her book bag which held her computer. She is complaining of left posterior rib and flank pain. She is on aspirin and clopidogrel. On exam no evidence of trauma no ecchymosis lung sounds are clear to auscultation bilaterally. She does have some tenderness with palpation to her left flank and posterior rib cage. No step-off or crepitus palpated. X-rays are within normal limits. However due to patient being on blood thinners will order CT chest abdomen pelvis without to evaluate underlying organs or any abnormalities. No evidence of trauma noted on CT. Patient was given a lidocaine patch and discharged home with home care and strict return instructions to return if any worsening. She verbalized understanding. Remained hemodynamically stable alert and oriented throughout the remainder of her stay. This text was generated using uMentioned dictation system, please disregard any oddities of phrase or misspellings. Imaging Data Radiologic Study: Imaging: CT Scan Radiologist's impression: FINDINGS: CHEST: Small hiatal hernia. Tracheobronchial tree: Patent where visualized. Pulmonary parenchyma: No consolidation or dominant measurable mass. Pleura: No effusion or pneumothorax. Lymph nodes: Within normal limits. Aorta: Thoracic portion non-dilated. Heart: No pericardial effusion. Coronary artery stent. Bones: Unremarkable for age. No lytic or blastic lesions.No compression fractures. No rib fracture identified. Soft tissues: Unremarkable. ABDOMEN and PELVIS: Liver: Normal density. No measurable mass. Gallbladder and biliary tract: Gallstones. No wall thickening. No biliary dilatation. Pancreas: Normal density, no abnormal calcifications or inflammatory process. Spleen: Normal. Kidneys: Normal size, contour and axis. No radiodense stones. No obstructive uropathy. No suspicious masses seen. Adrenal glands: No masses seen. Aorta: Abdominal portion non-dilated. Lymph nodes: Within normal limits. Soft tissues: Unremarkable. Bladder: Unremarkable. Bowel: No obstruction or bowel wall thickening. Appendix normal. Peritoneal cavity: No ascites. No focal collection. No mesenteric inflammatory response. Bones: Unremarkable for age. No spine or pelvic fracture. Reproductive organs: Within normal limits. IMPRESSION: No acute abnormality in the chest, abdomen or pelvis.. Quality:SDOH Health Related Social Needs: No Data to Display PFSH All Active Problems Fall (Acute) Contusion of rib on left side (Acute) Plantar fascia syndrome (Chronic) Hematuria due to chronic interstitial cystitis (Chronic) Healthcare maintenance (Chronic) Smoking hx (Acute) quit 1995 Rotator cuff syndrome (Acute 06/25/06) right Increased BMI (Acute) Gastroesophageal reflux disease (Acute) Dermatitis (Acute) Skin BX-eczema Anxiety (Acute 05/27/17) Allergic rhinitis (Acute) Acute left ankle pain (Acute 05/22/16) Uterine prolapse (Acute 09/15/13) Status post vaginal hysterectomy (Acute 09/15/13) Medical History Allergic rhinitis GERD (gastroesophageal reflux disease) Obesity (BMI 30.0-34.9) Dermatitis Surgical History SHOULDER SURGERY (06/08/07) RIGHT Nasal septoplasty (~2000) Hysterectomy, Laproscopic (09/14/13) FIBROID Bilateral salpingectomy with oophorectomy Arthroplasty of knee (~2005) LEFT Family History Mother Essential hypertension Father , AGE 58 Heart disease Brother , AGE 57 Essential hypertension Diabetes Heart disease Stroke Brother Essential hypertension Hyperlipidemia Sister No problems noted. Daughter No problems noted. Daughter No problems noted. Social History Smoking/Tobacco Use Status: Former Tobacco Use Smoking risk assessment performed?: Yes Alcohol Intake: current Alcohol Intake frequency: holidays/special occasions only Drug use: Never Substance use type: does not use Duration: 15-30 minutes/day Frequency: 3-4 times per week Mirta/Alevism: Pentecostal Special mirta needs: No Do you feel safe at home: Yes Do you feel safe in your relationship?: Yes Discharge Plan Disposition Patient Disposition: Home Condition: Stable Discharge Details Clinical Impression: Contusion of rib on left side, Fall Primary Care Provider: Aleisha Boateng ED Provider: Debra Bustillo Home Meds and New Rx's Prescriptions: No Action omeprazole 20 mg capsule,delayed release(DR/EC) 20 mg PO DAILY Qty: 90 3RF meloxicam 15 mg tablet 15 mg PO DAILY PRN (Reason: arthralgia) Qty: 90 3RF multivitamin [Daily Multi-Vitamin] 1 EACH tablet 1 ea PO DAILY calcium carbonate-vitamin D3 1 EACH tablet 1 ea PO DAILY Qty: 30 loratadine 10 mg tablet 10 mg PO DAILY Qty: 90 3RF Discharge Instructions Instructions: Rib Contusion (ED) Additional Instructions: No evidence of broken bones on the CT, no intra-abdominal abnormality. You may apply lidocaine patches once a day which she can get [id number]. Please take Tylenol or Ibuprofen with food every 4-6 hours as needed for pain and swelling. You may alternate ice and heat. Follow up with primary care provider in 3-5 days. Return to ED sooner if any worsening or concerns. Increase oral fluids. Referrals: Aleisha Boateng [Primary Care Provider] - 5 days
[2023-09-11] MEDS: Lidocaine 5% Patch 1 PATCH TP (18:58)
== END 2023-09-11 19:09 | disposition home or self-care (01) ==
PROVIDERS: Emergency Provider Registered Nurse Emergency; PCP General Practice
DX: S20.212A Contusion of left front wall of thorax, initial encounter (principal); Z95.5 Presence of coronary angioplasty implant and graft; Z79.82 Long term (current) use of aspirin; Z79.02 Long term (current) use of antithrombotics/antiplatelets; Z87.891 Personal history of nicotine dependence; W00.0XXA Fall on same level due to ice and snow, initial encounter; Y93.01 Activity, walking, marching and hiking
CPT/HCPCS: 71250; 99285; 71046; 71100; 74176; 99284

== ENCOUNTER 2025-01-11 02:01 | Outpatient (CLI) | payer BC, SELFPAY ==
--- NOTE | 2025-01-11 | DI.MAMMO_ITS ---
Exam(s) MAMMO SCREENING EXAM: MAMMO SCREENING CLINICAL HISTORY: Z12.31 Screening TECHNIQUE: Bilateral full field digital CC and MLO mammographic images were obtained with 3D tomosynthesis and utilizing computer aided detection (CAD). COMPARISON: Comparison is made with prior examinations. FINDINGS: Masses/Architectural Distortion: No suspicious masses or areas of architectural distortion are present. There is a stable nodule in the posterior right breast. There is an area of breast asymmetry in the posterior central left breast on the craniocaudad view. This may represent overlying fibroglandular tissue, but spot compression views requested. Microcalcifications: No suspicious pleomorphic-type are seen. Skin Thickening/Nipple Retraction: None. IMPRESSION: 1. Asymmetric breast tissue in the posterior central left breast on the craniocaudad view. 2. A spot compression views requested for further evaluation. Ultrasound may be indicated at that time. BI-RADS Category 0 - Incomplete: Need additional imaging evaluation Breast Density - Category C - The breast are heterogeneously dense, which may obscure small masses. Breast density Category C or D implies that the patient has dense breast tissue. Dense breast tissue can make it harder to find cancer on a mammogram. Dense breast tissue is also associated with an increased risk of breast cancer. This information about the result of the mammogram report was provided to the patient to raise their awareness. Use this report when you speak with the patient about their risks for breast cancer, which includes their family history. At that time, you may recommend additional screening tests (Ultrasound or MRI) as these tests may add significant information. A negative radiographic report should not delay biopsy if a dominant or clinically suspicious mass is present. Up to ten percent of cancers are not identified on mammography. A negative report may reinforce clinical impression. Adenosis and dense breasts may obscure an underlying neoplasm. False positive reports average 6 to 10%. Patient will receive a letter notifying them of these results.
== END 2025-01-11 02:21 ==
LOC: DI 02:01
PROVIDERS: PCP General Practice; Visit Provider General Practice
DX: Z12.31 Encounter for screening mammogram for malignant neoplasm of breast (principal); R92.333 Mammographic heterogeneous density, bilateral breasts
CPT/HCPCS: 77063; 77067

== ENCOUNTER 2025-01-16 02:13 | Outpatient (CLI) | payer BC, SELFPAY ==
--- NOTE | 2025-01-16 | DI.MAMMO_ITS ---
Exam(s) MG MAMMO SCREEN CALL BACK UNI US BREAST LT COMPLETE EXAM: MG MAMMO SCREEN CALL BACK UNI CLINICAL HISTORY: Asymmetric breast tissue, posterior central lt breast. TECHNIQUE: Craniocaudal and mediolateral oblique spot compression digital Mammography views of the leftbreast with Tomosynthesis and left breast ultrasound. COMPARISON: MG MG mammo screening from 07/22/2018 MG MG MAMMO SCREENING from 08/02/2019 [facility] MAMMO SCREENING from 08/07/2020 [facility] MG MAMMO SCREENING from 08/14/2021 [facility] MG MAMMO SCREENING from 08/18/2022 MG MG MAMMO SCREENING from 01/11/2025 US US BREAST LT COMPLETE from 01/16/2025 FINDINGS: Mammography/Tomosynthesis: Masses: None seen. No persistent abnormality on the spot compression views. Architectural Distortion: None seen. Microcalcifictions: No suspicious pleomorphic-type are seen. Skin Thickening/Nipple Retraction: None. Left breast US: Echotexture: Normal appearance of the glandular tissue. Shadowing: No suspicious foci. Cyst: None. Solid lesions: None seen. Ductal dilation: None. IMPRESSION: 1. No evidence of malignancy is noted. 2. Unless there is more urgent need, follow-up screening mammography is recommended, as per [employer] [place] guidelines. 3. The findings were discussed with the patient on the date of the examination. BI-RADS Category 1 - Negative Breast Density - Category C - The breast are heterogeneously dense, which may obscure small masses. Breast density Category C or D implies that the patient has dense breast tissue. Dense breast tissue can make it harder to find cancer on a mammogram. Dense breast tissue is also associated with an increased risk of breast cancer. This information about the result of the mammogram report was provided to the patient to raise their awareness. Use this report when you speak with the patient about their risks for breast cancer, which includes their family history. At that time, you may recommend additional screening tests (Ultrasound or MRI) as these tests may add significant information. A negative radiographic report should not delay biopsy if a dominant or clinically suspicious mass is present. Up to ten percent of cancers are not identified on mammography. A negative report may reinforce clinical impression. Adenosis and dense breasts may obscure an underlying neoplasm. False positive reports average 6 to 10%. Patient will receive a letter notifying them of these results.
== END 2025-01-16 02:33 ==
LOC: DI 02:14
PROVIDERS: PCP General Practice; Visit Provider General Practice
DX: Z12.31 Encounter for screening mammogram for malignant neoplasm of breast (principal); R92.333 Mammographic heterogeneous density, bilateral breasts
CPT/HCPCS: 76642; 77063; 77067